=== PATIENT | female | born 1985 | race American Indian/Alaskan Native ===

== ENCOUNTER 2020-07-08 19:49 | Emergency (ER) | payer MEDICAID ==
[2020-07-08] MEDS ORDERED: GI Cocktail Oral Solution 30 ML PO ONE (20:29)
[2020-07-08] MEDS ORDERED: HYDROmorphone 2 MG/ML SDV IVPUSH ONE (20:30)
[2020-07-08] MEDS ORDERED: HYDROmorphone 2 MG/ML SDV ONE (21:10)
--- NOTE | 2020-07-08 21:31 | EDM.PDOC ---
ED HPI GENERAL MEDICAL PROBLEM - General Chief Complaint: Abdominal Pain Stated Complaint: Pain in her galbladder region Time Seen by Provider: 07/08/20 20:00 Source of Information: Reports: Patient History Limitations: Reports: No Limitations - History of Present Illness INITIAL COMMENTS - FREE TEXT/NARRATIVE: 34 year old female presented to ED with abd pain located in upper right quadrant & epigastric areas for the last 3 days -the pain dull ache 5/10 -non radiating .Nothing makes pain better or worse denies fever,N/V ,chest pain ,headache , shortness of breath ,abd pain Duration: Day(s): (3 days ) Quality: Reports: Dull. 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14 Gastrointestinal History: Reports: Other (See Below) Other Gastrointestinal History: gall bladder problems in the past 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: Other (See Below) 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: D & C Social & Family History - Recreational Drug Use Recreational Drug Use: No ED ROS GENERAL - Review of Systems Review Of Systems: See Below Constitutional: Reports: No Symptoms HEENT: Reports: No Symptoms Respiratory: Reports: No Symptoms Cardiovascular: Reports: No Symptoms Endocrine: Reports: No Symptoms GI/Abdominal: Reports: No Symptoms, Abdominal Pain (present in right hypchondrium & epigastric ) : Reports: No Symptoms Musculoskeletal: Reports: No Symptoms Neurological: Reports: No Symptoms ED EXAM, GI/ABD - Physical Exam Exam: See Below Exam Limited By: No Limitations General Appearance: Alert, WD/WN, No Apparent Distress Head: Atraumatic, Normocephalic Cardiovascular: Normal Peripheral Pulses, Regular Rate, Rhythm, No Edema, No Gallop, No JVD, No Murmur, No Rub, Diastolic Murmur GI/Abdominal Exam: Normal Bowel Sounds, Soft, Non-Tender, No Organomegaly, No Distention, No Abnormal Bruit, No Mass Neurological: Alert, Oriented, CN II-XII Intact, Normal Cognition Course - Vital Signs Text/Narrative:: 36 year old female presented with abd pain 3 days vitals monitored labs ordered Blood sugar was 260 there was also sugar in urine Gi cocktail given & injection Dilaudid 1mg given patient is feeling better Disposition = the patient was discharged home in stable positions medications -Myllanta over the counter F/U -with primary care for elevated blood sugar education materials regarding high glucose given i e weight reduction , diet & physical activity Last Recorded V/S: Last Vital Signs Temp 98.6 F 07/08/20 20:06 Pulse 73 07/08/20 20:06 Resp 18 07/08/20 20:06 BP 156/92 H 07/08/20 20:06 Pulse Ox 100 07/08/20 20:06 - Orders/Labs/Meds Orders: Active Orders 24 hr Category Date Time Status AMYLASE [CHEM] Stat Lab 07/08/20 20:54 Ordered BILIRUBIN DIRECT [CHEM] Stat Lab 07/08/20 20:28 Ordered CBC WITH AUTO DIFF [HEME] Stat Lab 07/08/20 20:27 Ordered COMPREHENSIVE METABOLIC PN,CMP [CHEM] Stat Lab 07/08/20 20:27 Ordered LIPASE [CHEM] Stat Lab 07/08/20 20:28 Ordered Preg Urine [HCG QUALITATIVE,URINE] [URCHEM] Stat Lab 07/08/20 20:42 Ordered UA RFX ETHEL AND CULT IF INDIC [URIN] Stat Lab 07/08/20 20:42 Ordered Meds: Medications Discontinued Medications Generic Name Dose Route Start Last Admin Trade Name Freq PRN Reason Stop Dose Admin Al Hydroxide/Mg Hydroxide 30 ml 07/08/20 20:29 07/08/20 20:41 Gi Cocktail PO 07/08/20 20:30 30 ml ONETIME ONE Administration Hydromorphone HCl 2 mg 07/08/20 20:30 07/08/20 21:01 Dilaudid IVPUSH 07/08/20 20:31 1 mg ONETIME ONE Administration Hydromorphone HCl Confirm 07/08/20 21:10 Dilaudid Administered 07/08/20 21:11 Dose 2 mg .ROUTE .STK-MED ONE Departure - Departure Time of Disposition: 21:55 Disposition: Home, Self-Care 01 Condition: Good Clinical Impression: Abdominal pain Qualifiers: Abdominal location: right upper quadrant Qualified Code(s): R10.11 - Right upper quadrant pain - Discharge Information Sepsis Event Note (ED) - Evaluation Sepsis Screening Result: No Definite Risk - Focused Exam Vital Signs: Vital Signs Temp Pulse Resp BP Pulse Ox 07/08/20 20:06 98.6 F 73 18 156/92 H 100 07/08/20 20:00 98.2 F - Problem List & Annotations (1) Abdominal pain SNOMED Code(s): 94817749 Code(s): R10.9 - UNSPECIFIED ABDOMINAL PAIN Status: Acute Priority: Medium Current Visit: Yes Onset Date: ~07/08/20 - My Orders Last 24 Hours: My Active Orders 07/08/20 20:27 CBC WITH AUTO DIFF [HEME] Stat COMPREHENSIVE METABOLIC PN,CMP [CHEM] Stat 07/08/20 20:28 BILIRUBIN DIRECT [CHEM] Stat LIPASE [CHEM] Stat 07/08/20 20:42 Preg Urine [HCG QUALITATIVE,URINE] [URCHEM] Stat UA RFX ETHEL AND CULT IF INDIC [URIN] Stat 07/08/20 20:54 AMYLASE [CHEM] Stat - Assessment/Plan Last 24 Hours: My Active Orders 07/08/20 20:27 CBC WITH AUTO DIFF [HEME] Stat COMPREHENSIVE METABOLIC PN,CMP [CHEM] Stat 07/08/20 20:28 BILIRUBIN DIRECT [CHEM] Stat LIPASE [CHEM] Stat 07/08/20 20:42 Preg Urine [HCG QUALITATIVE,URINE] [URCHEM] Stat UA RFX ETHEL AND CULT IF INDIC [URIN] Stat 07/08/20 20:54 AMYLASE [CHEM] Stat
== END 2020-07-08 21:57 | disposition home or self-care (01) ==
LOC: LB.ED 19:49
DX: R10.11 Right upper quadrant pain (principal); R10.13 Epigastric pain
CPT/HCPCS: 36415; 80053; 81001; 81025; 82150; 82248; 83690; 85025; 87086; 96374; 99284; 99284-25; A9270-GY; J1170

== ENCOUNTER 2020-07-25 23:08 | Emergency (ER) | payer MEDICAID ==
[2020-07-25] MEDS ORDERED: Ciprofloxacin 500 MG Tab ONE (23:40)
[2020-07-25] MEDS ORDERED: traMADol 50 MG Tab ONE (23:40)
[2020-07-25] MEDS ORDERED: Acetaminophen 500 MG Tab ONE (23:49)
[2020-07-25] MEDS ORDERED: Acetaminophen 325 MG Tab ONE (23:55)
--- NOTE | 2020-07-26 00:19 | EDM.PDOC ---
ED HPI GENERAL MEDICAL PROBLEM - General Chief Complaint: Abdominal Pain Stated Complaint: gallbladder pain Time Seen by Provider: 07/25/20 23:50 Source of Information: Reports: Patient History Limitations: Reports: No Limitations - History of Present Illness INITIAL COMMENTS - FREE TEXT/NARRATIVE: patient presented to the ER with a c/o RUQ. started 2 days ago. spasm in nature. worse with movement. not related to food. no urinary symptoms. \no N/V/D. no fever or chills. she reports it lasts for few seconds then go away. frequency almost hourly. similar history 2 weeks ago - was diagnosed with biliary colic - US was ordered but patient missed her appointment. Took tylenol for pain. Pain 4 to 5 out of 10. Duration: Day(s): (2) Location: Reports: Abdomen Quality: Reports: Other (colicky) Severity: Mild Worsens with: Reports: Movement Associated Symptoms: Reports: No Other Symptoms - Related Data Allergies Allergy/AdvReac Type Severity Reaction Status Date / Time No Known Allergies Allergy Verified 07/08/20 20:07 Home Meds: Home Meds NK [No Known Home Meds] 07/08/20 [History] Past Medical History Cardiovascular History: Reports: Other (See Below) Other Cardiovascular History: cardiac surgery for hole in her heart when she was 14 Gastrointestinal History: Reports: Other (See Below) Other Gastrointestinal History: gall bladder problems in the past 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 (See Below) 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 - Infectious Disease History Infectious Disease History: Reports: Chicken Pox, Influenza Social & Family History - Tobacco Use Tobacco Use Status *Q: Never Tobacco User ED ROS GENERAL - Review of Systems Review Of Systems: See Below Constitutional: Reports: No Symptoms HEENT: Reports: No Symptoms Respiratory: Reports: No Symptoms Cardiovascular: Reports: No Symptoms : Reports: No Symptoms Musculoskeletal: Reports: No Symptoms Skin: Reports: No Symptoms Neurological: Reports: No Symptoms Psychiatric: Reports: No Symptoms ED EXAM, GI/ABD - Physical Exam Exam: See Below Exam Limited By: No Limitations General Appearance: Alert, WD/WN, No Apparent Distress Eyes: Bilateral: EOMI Nose: Normal Inspection Respiratory/Chest: No Respiratory Distress, Lungs Clear Cardiovascular: Normal Peripheral Pulses GI/Abdominal Exam: Normal Bowel Sounds, Soft, Tender (RUQ) Back Exam: Normal Inspection Neurological: Alert, Oriented, CN II-XII Intact Course - Vital Signs Last Recorded V/S: Last Vital Signs Temp 36.8 C 07/25/20 23:15 Pulse 85 07/25/20 23:15 Resp 18 07/25/20 23:15 BP 149/94 H 07/25/20 23:15 Pulse Ox 98 07/25/20 23:15 - Orders/Labs/Meds Orders: Active Orders 24 hr Category Date Time Status Ciprofloxacin [Ciprofloxacin HCl] Med 07/26/20 00:42 Once 500 mg PO ONETIME ONE Labs: Laboratory Tests 07/25/20 07/25/20 07/26/20 Range/Units 23:50 23:50 00:04 WBC 8.1 (4.0-11.0) K/uL RBC 5.00 (3.80-5.80) M/uL Hgb 13.4 (11.5-16.5) g/dL Hct 40.5 (37.0-47.0) % MCV 81 (76-96) fL MCH 26.8 L (27.0-32.0) pg MCHC 33.1 (31.0-35.0) g/dL RDW 14.0 (11.0-16.0) % Plt Count 413 (150-500) K/uL MPV 8.6 (6.0-10.0) fL Neut % (Auto) 53.5 (45.0-70.0) % Lymph % (Auto) 37.6 (20.0-40.0) % [place] % (Auto) 6.8 (3.0-10.0) % Eos % (Auto) 1.7 (1.0-5.0) % Baso % (Auto) 0.4 (0.0-0.5) % Neut # (Auto) 4.36 (2.00-7.50) K/uL Lymph # (Auto) 3.06 (1.50-4.00) K/uL [place] # (Auto) 0.55 (0.20-0.80) K/uL Eos # (Auto) 0.14 (0.04-0.40) K/uL Baso # (Auto) 0.03 (0.02-0.10) K/uL Sodium 141 (136-145) mmol/L Potassium 3.6 (3.5-5.1) mmol/L Chloride 105 (98-107) mmol/L Carbon Dioxide 24.0 (21.0-32.0) mmol/L Anion Gap 15.6 H (5.0-15.0) mmol/L BUN 7 L D (8-26) mg/dL Creatinine 0.83 (0.55-1.02) mg/dL Est Cr Clr Drug Dosing TNP Estimated GFR (MDRD) > 60 (>60) MLS/MIN BUN/Creatinine Ratio 8.4 (6-25) Glucose 149 H D (74-100) mg/dL Calcium 8.7 (8.5-10.1) mg/dL Total Bilirubin 0.3 (0.0-1.0) mg/dL ALT 57 (12-78) U/L Alkaline Phosphatase 153 H (46-116) U/L Total Protein 7.2 (6.4-8.2) g/dL Albumin 3.7 (3.4-5.0) g/dL Globulin 3.5 (2.2-4.2) g/dL Albumin/Globulin Ratio 1.1 (0.8-2.0) Urine Color Yellow Urine Appearance Slightly cloudy (CLEAR) Urine pH 5.5 (5.0-8.0) Ur Specific Br[place] 1.025 (1.003-1.030) Urine Protein Negative (NEGATIVE) mg/dL Urine Glucose (UA) Negative (NEGATIVE) mg/dL Urine Ketones Trace H (NEGATIVE) mg/dL Urine Occult Blood Trace (NEGATIVE) Urine Nitrite Negative (NEGATIVE) Urine Bilirubin Negative (NEGATIVE) Urine Urobilinogen 0.2 (0.2-1.0) E.U./dL Ur Leukocyte Esterase Trace H (NEGATIVE) Urine RBC 0-5 H /HPF Urine WBC 5-10 H /HPF Ur Epithelial Cells Moderate /HPF Urine Bacteria Moderate H /HPF Urine Mucus Few /HPF Urine HCG, Qual (NEGATIVE) 07/26/20 Range/Units 00:04 WBC (4.0-11.0) K/uL RBC (3.80-5.80) M/uL Hgb (11.5-16.5) g/dL Hct (37.0-47.0) % MCV (76-96) fL MCH (27.0-32.0) pg MCHC (31.0-35.0) g/dL RDW (11.0-16.0) % Plt Count (150-500) K/uL MPV (6.0-10.0) fL Neut % (Auto) (45.0-70.0) % Lymph % (Auto) (20.0-40.0) % [place] % (Auto) (3.0-10.0) % Eos % (Auto) (1.0-5.0) % Baso % (Auto) (0.0-0.5) % Neut # (Auto) (2.00-7.50) K/uL Lymph # (Auto) (1.50-4.00) K/uL [place] # (Auto) (0.20-0.80) K/uL Eos # (Auto) (0.04-0.40) K/uL Baso # (Auto) (0.02-0.10) K/uL Sodium (136-145) mmol/L Potassium (3.5-5.1) mmol/L Chloride (98-107) mmol/L Carbon Dioxide (21.0-32.0) mmol/L Anion Gap (5.0-15.0) mmol/L BUN (8-26) mg/dL Creatinine (0.55-1.02) mg/dL Est Cr Clr Drug Dosing Estimated GFR (MDRD) (>60) MLS/MIN BUN/Creatinine Ratio (6-25) Glucose (74-100) mg/dL Calcium (8.5-10.1) mg/dL Total Bilirubin (0.0-1.0) mg/dL ALT (12-78) U/L Alkaline Phosphatase (46-116) U/L Total Protein (6.4-8.2) g/dL Albumin (3.4-5.0) g/dL Globulin (2.2-4.2) g/dL Albumin/Globulin Ratio (0.8-2.0) Urine Color Urine Appearance (CLEAR) Urine pH (5.0-8.0) Ur Specific Braman (1.003-1.030) Urine Protein (NEGATIVE) mg/dL Urine Glucose (UA) (NEGATIVE) mg/dL Urine Ketones (NEGATIVE) mg/dL Urine Occult Blood (NEGATIVE) Urine Nitrite (NEGATIVE) Urine Bilirubin (NEGATIVE) Urine Urobilinogen (0.2-1.0) E.U./dL Ur Leukocyte Esterase (NEGATIVE) Urine RBC /HPF Urine WBC /HPF Ur Epithelial Cells /HPF Urine Bacteria /HPF Urine Mucus /HPF Urine HCG, Qual Negative (NEGATIVE) Meds: Medications Discontinued Medications Generic Name Dose Route Start Last Admin Trade Name Chris PRN Reason Stop Dose Admin Acetaminophen Confirm 07/25/20 23:55 07/26/20 00:07 Tylenol Administered 07/25/20 23:56 Not Given Dose 650 mg .ROUTE .STK-MED ONE Acetaminophen Confirm 07/25/20 23:49 07/25/20 23:50 Tylenol Extra Strength Administered 07/25/20 23:50 500 mg Dose Administration 500 mg .ROUTE .STK-MED ONE - Re-Assessments/Exams Free Text/Narrative Re-Assessment/Exam: vitals - no fever or tachycardia mild elevation in BP - which patient reports that is she is aware of it. labs were ordered including CBC, CMP, LIPASE and UA. 07/26/20 00:43 labs - no leukocytosis, mild elevation in alk phosph normal bili no e/o obstructive stone most likely a biliary colic UA was significant for bacteria and WBC. cipro PO was started Departure - Departure Time of Disposition: 00:44 Disposition: Home, Self-Care 01 Condition: Good Clinical Impression: Biliary colic Abdominal pain Qualifiers: Abdominal location: right upper quadrant Qualified Code(s): R10.11 - Right upper quadrant pain UTI (urinary tract infection) Qualifiers: Urinary tract infection type: site unspecified Hematuria presence: without hematuria Qualified Code(s): N39.0 - Urinary tract infection, site not specified - Discharge Information *PRESCRIPTION DRUG MONITORING PROGRAM REVIEWED*: Not Applicable *COPY OF PRESCRIPTION DRUG MONITORING REPORT IN PATIENT MINA: Not Applicable Referrals: PCP,None [Primary Care Provider] - Forms: ED Department Discharge Sepsis Event Note (ED) - Evaluation Sepsis Screening Result: No Definite Risk - Focused Exam Vital Signs: Vital Signs Temp Pulse Resp BP Pulse Ox 07/25/20 23:15 36.8 C 85 18 149/94 H 98 - Problem List & Annotations (1) Biliary colic SNOMED Code(s): 17058612 Code(s): K80.50 - CALCULUS OF BILE DUCT W/O CHOLANGITIS OR CHOLECYST W/O OBST Status: Acute Priority: Medium Current Visit: Yes (2) UTI (urinary tract infection) SNOMED Code(s): 61644797 Code(s): N39.0 - URINARY TRACT INFECTION, SITE NOT SPECIFIED Status: Acute Priority: Medium Current Visit: Yes Qualifiers: Urinary tract infection type: site unspecified Hematuria presence: without hematuria Qualified Code(s): N39.0 - Urinary tract infection, site not specified (3) Abdominal pain SNOMED Code(s): 19812059 Code(s): R10.9 - UNSPECIFIED ABDOMINAL PAIN Status: Acute Priority: Medium Current Visit: No Qualifiers: Abdominal location: right upper quadrant Qualified Code(s): R10.11 - Right upper quadrant pain - Problem List Review Problem List Initiated/Reviewed/Updated: Yes - My Orders Last 24 Hours: My Active Orders 07/26/20 00:42 Ciprofloxacin [Ciprofloxacin HCl] 500 mg PO ONETIME ONE - Assessment/Plan Last 24 Hours: My Active Orders 07/26/20 00:42 Ciprofloxacin [Ciprofloxacin HCl] 500 mg PO ONETIME ONE Plan: - please take your antibiotics as prescribed - return tomorrow morning for US of your gall bladder - call first to make an appointment - take tramadol for pain as prescribed - add tylenol as needed - increase fluids intake - return to the ER if symptoms got worse or any concerns
[2020-07-26] MEDS ORDERED: Ciprofloxacin 500 MG Tab PO ONE (00:42)
== END 2020-07-26 00:56 | disposition home or self-care (01) ==
LOC: LB.ED 23:08
DX: K80.50 Calculus of bile duct without cholangitis or cholecystitis without obstruction (principal); N39.0 Urinary tract infection, site not specified
CPT/HCPCS: 36415; 80053; 81001; 81025; 85025; 99283; 99284; A9270-GY

== ENCOUNTER 2020-07-27 00:04 | Emergency (ER) | payer MEDICAID ==
--- NOTE | 2020-07-27 00:33 | EDM.PDOC ---
ED HPI GENERAL MEDICAL PROBLEM - General Chief Complaint: General Stated Complaint: ABDOMINAL PAIN Time Seen by Provider: 07/27/20 00:30 Source of Information: Reports: Patient History Limitations: Reports: No Limitations - History of Present Illness INITIAL COMMENTS - FREE TEXT/NARRATIVE: presented to the ER with a c/o biliary colic. known gall stones - was seen twice in the ER for the same reason this month. No fever or chills. No emesis but mild nausea. Pain has subsided now. She was seen in the ER yesterday for the same reason - labs - no e/o leukocytosis, but showed a UTI. Was started on Cipro and tramadol. Reports she only took the tramadol once yesterday but not today !! 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 (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 Below) 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 - Infectious Disease History Infectious Disease History: Reports: Chicken Pox, Influenza Social & Family History - Tobacco Use Tobacco Use Status *Q: Former Tobacco User Used Tobacco, but Quit: Yes Month/Year Tobacco Last Used: 06/20 - Caffeine Use Caffeine Use: Reports: None - Recreational Drug Use Recreational Drug Use: No ED ROS GENERAL - Review of Systems Review Of Systems: See Below Constitutional: Reports: No Symptoms HEENT: Reports: No Symptoms Respiratory: Reports: No Symptoms Cardiovascular: Reports: No Symptoms : Reports: No Symptoms Musculoskeletal: Reports: No Symptoms Skin: Reports: No Symptoms ED EXAM, GENERAL - Physical Exam Exam: See Below Exam Limited By: No Limitations General Appearance: Alert, No Apparent Distress Respiratory/Chest: No Respiratory Distress Cardiovascular: Normal Peripheral Pulses GI/Abdominal: Normal Bowel Sounds, Soft, No Distention, Tender (very mild RUQ,no rebound, negative jeff's) Back Exam: Normal Inspection Neurological: Alert, Oriented, No Motor/Sensory Deficits Course - Vital Signs Last Recorded V/S: Last Vital Signs Temp 36.2 C 07/27/20 00:09 Pulse 70 07/27/20 00:09 Resp 14 07/27/20 00:09 BP 146/98 H 07/27/20 00:09 Pulse Ox 97 07/27/20 00:09 - Orders/Labs/Meds Meds: Medications Discontinued Medications Generic Name Dose Route Start Last Admin Trade Name Chris PRN Reason Stop Dose Admin Ketorolac Tromethamine 60 mg 07/27/20 00:34 07/27/20 00:38 Toradol IM 07/27/20 00:35 60 mg ONETIME ONE Administration Ketorolac Tromethamine Confirm 07/27/20 00:47 Toradol Administered 07/27/20 00:48 Dose 60 mg .ROUTE .STK-MED ONE - Re-Assessments/Exams Free Text/Narrative Re-Assessment/Exam: 07/27/20 00:44 vitals - no concerns 07/27/20 00:45 IM toradol was given - reports feeling better. was d/cd home on Zofran and Toradol PO. was instructed to avoid certain type of fatty food - a list was given to her has an appointment to follow up with her primary on - in 3 days. US abdomen was done earlier today - showed multiple gall stone, but no pericholecystic fluids, negative Jeff's sign. Departure - Departure Time of Disposition: 00:47 Disposition: Home, Self-Care 01 Condition: Good Clinical Impression: Biliary colic - Discharge Information *PRESCRIPTION DRUG MONITORING PROGRAM REVIEWED*: Not Applicable *COPY OF PRESCRIPTION DRUG MONITORING REPORT IN PATIENT MINA: Not Applicable Referrals: PCP,None [Primary Care Provider] - Forms: ED Department Discharge Sepsis Event Note (ED) - Evaluation Sepsis Screening Result: No Definite Risk - Focused Exam Vital Signs: Vital Signs Temp Pulse Resp BP Pulse Ox 07/27/20 00:09 36.2 C 70 14 146/98 H 97 - Problem List & Annotations (1) Biliary colic SNOMED Code(s): 95258546 Code(s): K80.50 - CALCULUS OF BILE DUCT W/O CHOLANGITIS OR CHOLECYST W/O OBST Status: Acute Priority: Medium Current Visit: Yes - Problem List Review Problem List Initiated/Reviewed/Updated: Yes - Assessment/Plan Plan: - take new pain medications as prescribed - avoid food that is rich in oil and fat, Also avoid fried food, pizza and fries. - recommend to consume steamed vegetables and white meat. Also fish. - follow up with your PCP per your appointment - return to the ER if fever, emesis or worsening of abdominal pain despite taking pain medications
[2020-07-27] MEDS: Ketorolac 60 MG/2 ML SDV IM ONE (00:38)
[2020-07-27] MEDS: Ketorolac 60 MG/2 ML SDV ONE (00:42)
[2020-07-27] MEDS ORDERED: Ondansetron 4 MG Tab.DIS ONE (00:50)
[2020-07-27] MEDS: Ondansetron 4 MG Tab.DIS PO ONE (00:54)
[2020-07-27] MEDS: Ondansetron 4 MG Tab.DIS ONE (01:00)
== END 2020-07-27 00:58 | disposition home or self-care (01) ==
LOC: LB.ED 00:04
DX: K80.50 Calculus of bile duct without cholangitis or cholecystitis without obstruction (principal); Z87.891 Personal history of nicotine dependence
CPT/HCPCS: 96372; 99283; A9270-GY; J1885

== ENCOUNTER 2020-09-25 08:29 | Emergency (ER) | payer MEDICAID ==
--- NOTE | 2020-09-25 09:37 | EDM.PDOC ---
ED HPI GENERAL MEDICAL PROBLEM - General Chief Complaint: General Stated Complaint: SOB,COVID Time Seen by Provider: 09/25/20 09:20 Source of Information: Reports: Patient, RN History Limitations: Reports: No Limitations - History of Present Illness INITIAL COMMENTS - FREE TEXT/NARRATIVE: patient presented to the ER with a c/o mild SOB that occurred last night. None today. was diagnosed with COVID a week ago. No fever or chills. no h/o asthma. no smoking. but has a h/o anxiety. Reports that yesterday she got herself worked up and felt like she is tight on breath, but was able to sleep and felt better this morning - decided to come to the ER for a checkup. Onset: Gradual Duration: Week(s): (1) - Related Data Allergies Allergy/AdvReac Type Severity Reaction Status Date / Time No Known Allergies Allergy Verified 09/25/20 08:58 Home Meds: Home Meds Acetaminophen [Tylenol] 500 mg PO ASDIRECTED PRN 07/27/20 [History] Ibuprofen [Motrin] 200 mg PO ASDIRECTED PRN 07/27/20 [History] metFORMIN [Glucophage XR] 500 mg PO DAILY 09/25/20 [History] Past Medical History Cardiovascular History: Reports: Other (See Below) Other Cardiovascular History: cardiac surgery for hole in her heart when she was 14 Gastrointestinal History: Reports: Other (See Below) Other Gastrointestinal History: gall bladder problems in the past 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: Other (See Below) Other NETWORK SOLUTIONS ARCHITECT History: D & C Endocrine/Metabolic History: Reports: Diabetes, Type II - Infectious Disease History Infectious Disease History: Reports: Chicken Pox, Influenza Social & Family History - Family History Family Medical History: No Pertinent Family History - Tobacco Use Tobacco Use Status *Q: Former Tobacco User Used Tobacco, but Quit: Yes Month/Year Tobacco Last Used: 06/2019 - Caffeine Use Caffeine Use: Reports: None ED ROS GENERAL - Review of Systems Review Of Systems: See Below Constitutional: Reports: No Symptoms HEENT: Reports: No Symptoms Respiratory: Reports: Shortness of Breath Cardiovascular: Reports: No Symptoms GI/Abdominal: Reports: No Symptoms Musculoskeletal: Reports: No Symptoms Skin: Reports: No Symptoms Neurological: Reports: No Symptoms ED EXAM, GENERAL - Physical Exam Exam: See Below Exam Limited By: No Limitations General Appearance: Alert, WD/WN, No Apparent Distress Eye Exam: Bilateral Eye: EOMI Throat/Mouth: Normal Inspection Head: Atraumatic Respiratory/Chest: No Respiratory Distress, Lungs Clear, Normal Breath Sounds, No Accessory Muscle Use Cardiovascular: Normal Peripheral Pulses, Regular Rate, Rhythm GI/Abdominal: Soft, Non-Tender Neurological: Alert, Oriented, No Motor/Sensory Deficits Psychiatric: Normal Affect Course - Vital Signs Last Recorded V/S: Last Vital Signs Temp 36.8 C 09/25/20 08:50 Pulse 86 09/25/20 09:28 Resp 16 09/25/20 09:28 BP 146/88 H 09/25/20 08:50 Pulse Ox 99 09/25/20 09:28 - Orders/Labs/Meds Orders: Active Orders 24 hr Category Date Time Status RT Aerosol Therapy [RC] ASDIRECTED Care 09/25/20 10:04 Ordered Chest 1V Frontal [CR] Stat Exams 09/25/20 09:11 Taken Albuterol/Ipratropium [DuoNeb 3.0-0.5 MG/3 ML] Med 09/25/20 10:03 Stat 3 ml NEB NOW STA Labs: Laboratory Tests 09/25/20 09/25/20 09/25/20 Range/Units 09:11 09:11 09:11 WBC 6.5 (4.0-11.0) K/uL RBC 5.37 (3.80-5.80) M/uL Hgb 14.0 (11.5-16.5) g/dL Hct 42.2 (37.0-47.0) % MCV 79 (76-96) fL MCH 26.1 L (27.0-32.0) pg MCHC 33.2 (31.0-35.0) g/dL RDW 14.6 (11.0-16.0) % Plt Count 378 (150-500) K/uL MPV 8.5 (6.0-10.0) fL Neut % (Auto) 68.5 (45.0-70.0) % Lymph % (Auto) 26.2 (20.0-40.0) % Craven % (Auto) 5.0 (3.0-10.0) % Eos % (Auto) 0.0 L (1.0-5.0) % Baso % (Auto) 0.3 (0.0-0.5) % Neut # (Auto) 4.43 (2.00-7.50) K/uL Lymph # (Auto) 1.69 (1.50-4.00) K/uL Craven # (Auto) 0.32 (0.20-0.80) K/uL Eos # (Auto) 0.00 L (0.04-0.40) K/uL Baso # (Auto) 0.02 (0.02-0.10) K/uL D-Dimer, Quantitative 127 (0-400) ng/mL Sodium 141 (136-145) mmol/L Potassium 3.7 (3.5-5.1) mmol/L Chloride 104 (98-107) mmol/L Carbon Dioxide 22.6 (21.0-32.0) mmol/L Anion Gap 18.1 H (5.0-15.0) mmol/L BUN 3 L D (8-26) mg/dL Creatinine 0.65 D (0.55-1.02) mg/dL Est Cr Clr Drug Dosing 98.98 mL/min Estimated GFR (MDRD) > 60 (>60) MLS/MIN BUN/Creatinine Ratio 4.6 L (6-25) Glucose 173 H (74-100) mg/dL Calcium 8.7 (8.5-10.1) mg/dL Meds: Medications Discontinued Medications Generic Name Dose Route Start Last Admin Trade Name Freq PRN Reason Stop Dose Admin Albuterol 2.5 mg 09/25/20 09:43 Albuterol 0.083% 2.5 Mg/3 Ml Neb Soln NEB 09/25/20 09:44 ONETIME ONE - Re-Assessments/Exams Free Text/Narrative Re-Assessment/Exam: patient SpO2 is 100% on RA. HR and BP WNL CXR was ordered - no acute abnormalities. Labs CBC, BMP and ddimer - WNL Duoneb was given - felt slightly better symptoms most likely anxiety related Departure - Departure Time of Disposition: 10:08 Disposition: Home, Self-Care 01 Condition: Good Clinical Impression: COVID-19, Anxiety - Discharge Information *PRESCRIPTION DRUG MONITORING PROGRAM REVIEWED*: Not Applicable *COPY OF PRESCRIPTION DRUG MONITORING REPORT IN PATIENT MINA: Not Applicable Instructions: COVID-19 Frequently Asked Questions, 10 Things You Can Do to Manage Your COVID-19 Symptoms at Home - [facility], Supporting Someone With Anxiety Referrals: PCP,None [Primary Care Provider] - Forms: ED Department Discharge Sepsis Event Note (ED) - Evaluation Sepsis Screening Result: No Definite Risk - Focused Exam Vital Signs: Vital Signs Temp Pulse Resp BP Pulse Ox 09/25/20 09:28 86 16 99 09/25/20 09:10 83 99 09/25/20 08:50 36.8 C 89 16 146/88 H 100 - Problem List & Annotations (1) Anxiety SNOMED Code(s): 38456217 Code(s): F41.9 - ANXIETY DISORDER, UNSPECIFIED Status: Acute Priority: Medium Current Visit: Yes (2) COVID-19 SNOMED Code(s): 873016503 Code(s): U07.1 - COVID-19 Status: Acute Priority: Medium Current Visit: Yes - Problem List Review Problem List Initiated/Reviewed/Updated: Yes - My Orders Last 24 Hours: My Active Orders 09/25/20 09:11 Chest 1V Frontal [CR] Stat 09/25/20 10:03 Albuterol/Ipratropium [DuoNeb 3.0-0.5 MG/3 ML] 3 ml NEB NOW STA 09/25/20 10:04 RT Aerosol Therapy [RC] ASDIRECTED - Assessment/Plan Last 24 Hours: My Active Orders 09/25/20 09:11 Chest 1V Frontal [CR] Stat 09/25/20 10:03 Albuterol/Ipratropium [DuoNeb 3.0-0.5 MG/3 ML] 3 ml NEB NOW STA 09/25/20 10:04 RT Aerosol Therapy [RC] ASDIRECTED Plan: - recommend to increase fluids intake - continue isolation for a total of 14 days - avoid second hand smoking - follow up with your PCP in 1-2 weeks as instructed - return to the ER if any worsening of shortness of breath
[2020-09-25] MEDS: Albuterol/Ipratropium 3.0-0.5 MG/3 ML Neb Soln NEB STA (09:58)
--- NOTE | 2020-09-25 10:22 | CR ---
Date of Service: 09/25/20 Clinical Data: SOB PORTABLE CHEST: No priors. The patient has taken a poor inspiration. The patient is status post median sternotomy. The heart size is normal. There is calcification of the aortic arch. The lungs are clear. No pneumothorax. No pleural effusions. No evidence of acute intrathoracic disease. [id number] MTDD
[2020-09-25] MEDS: Albuterol 0.083% 2.5 MG/3 ML Neb Soln NEB ONE (10:49)
== END 2020-09-25 10:10 | disposition home or self-care (01) ==
LOC: LB.ED 08:29
DX: U07.1 COVID-19 (principal); F41.9 Anxiety disorder, unspecified; Z87.891 Personal history of nicotine dependence; E11.9 Type 2 diabetes mellitus without complications; Z79.84 Long term (current) use of oral hypoglycemic drugs
CPT/HCPCS: 36415; 71045; 80048; 85025; 85379; 99285-25; J7620-GY

== ENCOUNTER 2021-01-08 11:00 | Emergency (ER) | payer MEDICAID ==
[2021-01-08] MEDS: Ketorolac 60 MG/2 ML SDV ONE (11:24)
[2021-01-08] MEDS: Ketorolac 60 MG/2 ML SDV IM ONE (11:25)
--- NOTE | 2021-01-08 12:09 | CT ---
DATE OF SERVICE: 01/08/2021 CLINICAL DATA: Right upper quadrant pain Unenhanced abdomen and pelvic CT: Multi slice acquisition through the abdomen and pelvis without IV or oral contrast was performed. No priors. The lung bases are clear. The liver is normal size with homogeneous attenuation. No focal hepatic lesions. The gallbladder appears normal. No calcified gallstones. No pericholecystic fluid. The spleen appears normal. The pancreas appears normal. The right and left adrenals appear normal. The right and left kidneys appear normal. No nephrocalcinosis or nephrolithiasis. No hydronephrosis or hydroureter. There is a small amount of fluid within the bladder. It appears grossly normal. The appendix is not dilated. No evidence of appendicitis. There is mild diverticulosis of the colon. No evidence of diverticulitis. There is a moderate amount of stool present throughout the colon. The uterus is unremarkable No free air. No free fluid. No dilated loops of bowel. No adenopathy. No aortic aneurysm MTDD
--- NOTE | 2021-01-08 12:23 | EDM.PDOC ---
ED HPI GENERAL MEDICAL PROBLEM - General Stated Complaint: RIGHT SIDE LOWER IN PAIN Time Seen by Provider: 01/08/21 11:10 - History of Present Illness INITIAL COMMENTS - FREE TEXT/NARRATIVE: Patient arrives to the ER with complaints of abdominal pain involving the upper right quadrant. She states that it started this morning when she woke up. She has not had any falls or injuries, and does not have any recent symptoms of illness such as fever. She denies any nausea vomiting diarrhea or constipation. She states that she has had this kind of pain before, and had a work-up in July and was found to have some gallstones. She was told she needs to have a surgical consult but this has not been done. The patient has not used any Tylenol or ibuprofen for her pain today. She denies any urinary symptoms such as dysuria or hematuria. Right Abdominal Pain Score (Numeric/FACES): 7 - Related Data Allergies Allergy/AdvReac Type Severity Reaction Status Date / Time No Known Allergies Allergy Verified 01/08/21 11:22 Home Meds: Home Meds Acetaminophen [Tylenol] 500 mg PO ASDIRECTED PRN 07/27/20 [History] Ibuprofen [Motrin] 200 mg PO ASDIRECTED PRN 07/27/20 [History] metFORMIN [Glucophage XR] 500 mg PO DAILY 09/25/20 [History] atorvaSTATin Calcium [Lipitor] 20 mg PO DAILY 01/08/21 [History] Past Medical History Cardiovascular History: Reports: Other (See Below) Other Cardiovascular History: cardiac surgery for hole in her heart when she was 14 Gastrointestinal History: Reports: Other (See Below) Other Gastrointestinal History: gall bladder problems in the past 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 GI/Abdominal: Reports: Abdominal Pain ED EXAM, GI/ABD - Physical Exam Exam: See Below Text/Narrative:: Patient is awake and alert no obvious distress. Vital signs are reviewed as listed they are normal. Lungs are clear, cardiac heart sounds distinct without murmurs, abdomen is soft, there is mild tenderness tenderness with palpation in the upper right quadrant without guarding. Bowel sounds are present. Skin is warm and dry. Course - Vital Signs Last Recorded V/S: Last Vital Signs Temp 96.9 F 01/08/21 11:05 Pulse 68 01/08/21 12:01 Resp 16 01/08/21 12:01 BP 118/79 01/08/21 12:01 Pulse Ox 98 01/08/21 12:01 - Orders/Labs/Meds Labs: Laboratory Tests 01/08/21 01/08/21 01/08/21 Range/Units 11:31 11:31 11:31 WBC 10.5 D (4.0-11.0) K/uL RBC 5.53 (3.80-5.80) M/uL Hgb 14.2 (11.5-16.5) g/dL Hct 43.6 (37.0-47.0) % MCV 79 (76-96) fL MCH 25.7 L (27.0-32.0) pg MCHC 32.6 (31.0-35.0) g/dL RDW 15.3 (11.0-16.0) % Plt Count 465 D (150-500) K/uL MPV 8.6 (6.0-10.0) fL Neut % (Auto) 63.8 (45.0-70.0) % Lymph % (Auto) 28.1 (20.0-40.0) % Anson % (Auto) 6.0 (3.0-10.0) % Eos % (Auto) 1.5 (1.0-5.0) % Baso % (Auto) 0.6 H (0.0-0.5) % Neut # (Auto) 6.69 (2.00-7.50) K/uL Lymph # (Auto) 2.95 (1.50-4.00) K/uL Anson # (Auto) 0.63 (0.20-0.80) K/uL Eos # (Auto) 0.16 (0.04-0.40) K/uL Baso # (Auto) 0.06 (0.02-0.10) K/uL Sodium 138 (136-145) mmol/L Potassium 3.7 (3.5-5.1) mmol/L Chloride 103 (98-107) mmol/L Carbon Dioxide 26.0 (21.0-32.0) mmol/L Anion Gap 12.7 (5.0-15.0) mmol/L BUN 5 L (8-26) mg/dL Creatinine 0.67 (0.55-1.02) mg/dL Est Cr Clr Drug Dosing 91.81 mL/min Estimated GFR (MDRD) > 60 (>60) MLS/MIN BUN/Creatinine Ratio 7.5 (6-25) Glucose 161 H (74-100) mg/dL Calcium 8.6 (8.5-10.1) mg/dL Total Bilirubin 0.5 D (0.0-1.0) mg/dL AST 17 (15-37) U/L ALT 32 (12-78) U/L Alkaline Phosphatase 135 H (46-116) U/L Total Protein 8.1 (6.4-8.2) g/dL Albumin 3.6 (3.4-5.0) g/dL Globulin 4.5 H (2.2-4.2) g/dL Albumin/Globulin Ratio 0.8 (0.8-2.0) Lipase 83 D (73-393) U/L Urine Color Yellow Urine Appearance Clear (CLEAR) Urine pH 7.0 (5.0-8.0) Ur Specific Irving 1.025 (1.003-1.030) Urine Protein Negative (NEGATIVE) mg/dL Urine Glucose (UA) Negative (NEGATIVE) mg/dL Urine Ketones Negative (NEGATIVE) mg/dL Urine Occult Blood Negative (NEGATIVE) Urine Nitrite Negative (NEGATIVE) Urine Bilirubin Negative (NEGATIVE) Urine Urobilinogen 0.2 (0.2-1.0) E.U./dL Ur Leukocyte Esterase Negative (NEGATIVE) Urine RBC Not Reportable Urine WBC Not Reportable Ur Epithelial Cells Rare /HPF Urine Bacteria Rare /HPF Meds: Medications Discontinued Medications Generic Name Dose Route Start Last Admin Trade Name Freq PRN Reason Stop Dose Admin Ketorolac Tromethamine Confirm 01/08/21 11:28 01/08/21 11:24 Ketorolac 60 Mg/2 Ml Sdv Administered 01/08/21 11:29 Not Given Dose 60 mg .ROUTE .STK-MED ONE Ketorolac Tromethamine 60 mg 01/08/21 11:20 01/08/21 11:25 Ketorolac 60 Mg/2 Ml Sdv IM 01/08/21 11:21 60 mg ONETIME ONE Administration - Re-Assessments/Exams Free Text/Narrative Re-Assessment/Exam: 01/08/21 12:21 Patient was given Toradol 60 mg IM at the beginning of our work-up. While monitoring her she states that her pain is significantly improved and she is now comfortable. CT of the abdomen and pelvis is normal there are no abnormal findings. Lab work as well is normal including CBC, CMP, UA, lipase. Departure - Departure Time of Disposition: 12:10 Disposition: Home, Self-Care 01 Condition: Good Clinical Impression: Abdominal pain - Discharge Information *PRESCRIPTION DRUG MONITORING PROGRAM REVIEWED*: Not Applicable *COPY OF PRESCRIPTION DRUG MONITORING REPORT IN PATIENT MINA: Not Applicable Instructions: Abdominal Pain, Adult, [id number] Referrals: PCP,None [Primary Care Provider] - Forms: ED Department Discharge Additional Instructions: Discharge home. CT scan and labs were normal. Follow up in the clinic with your primary provider in 1 week. Tylenol and Ibuprofen alternating for pain. Call or return to the ER if you have any questions or concerns. Sepsis Event Note (ED) - Evaluation Sepsis Screening Result: No Definite Risk - Focused Exam Vital Signs: Vital Signs Temp Pulse Resp BP Pulse Ox 01/08/21 12:01 68 16 118/79 98 01/08/21 11:05 96.9 F 72 16 130/95 H 100
== END 2021-01-08 12:20 | disposition home or self-care (01) ==
LOC: LB.ED 11:00
DX: R10.11 Right upper quadrant pain (principal); E11.9 Type 2 diabetes mellitus without complications; Z79.84 Long term (current) use of oral hypoglycemic drugs; Z79.899 Other long term (current) drug therapy
CPT/HCPCS: 36415; 74176; 80053; 81001; 83690; 85025; 96372; 99284-25; J1885

== ENCOUNTER 2021-05-30 20:52 | Emergency (ER) | payer MEDICAID ==
--- NOTE | 2021-05-30 21:32 | EDM.PDOC ---
ED HPI GENERAL MEDICAL PROBLEM - General Chief Complaint: Respiratory Problem Stated Complaint: congestion Time Seen by Provider: 05/30/21 21:05 Source of Information: Reports: Patient, Family, RN Notes Reviewed History Limitations: Reports: No Limitations - History of Present Illness INITIAL COMMENTS - FREE TEXT/NARRATIVE: Patient presents to the emergency department for evaluation of nasal congestion. She states she has had this for a day or so. She denies cough, fever, change in appetite. She is had no vomiting or diarrhea. She denies headache or chest pain. - Related Data Allergies Allergy/AdvReac Type Severity Reaction Status Date / Time No Known Allergies Allergy Verified 05/31/21 03:36 Home Meds: Home Meds Acetaminophen [Tylenol] 500 mg PO ASDIRECTED PRN 07/27/20 [History] Ibuprofen [Motrin] 200 mg PO ASDIRECTED PRN 07/27/20 [History] metFORMIN [Glucophage XR] 500 mg PO DAILY 09/25/20 [History] atorvaSTATin Calcium [Lipitor] 20 mg PO DAILY 01/08/21 [History] Past Medical History Cardiovascular History: Reports: Other (See Below) Other Cardiovascular History: cardiac surgery for hole in her heart when she was 14 Gastrointestinal History: Reports: Other (See Below) Other Gastrointestinal History: gall bladder problems in the past 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 ED EXAM, GENERAL - Physical Exam Exam: See Below Exam Limited By: No Limitations General Appearance: Alert, No Apparent Distress Eye Exam: Bilateral Eye: EOMI, Normal Inspection, PERRL Ears: Normal External Exam, Normal Canal, Normal TMs Ear Exam: Bilateral Ear: TM normal Nose: Normal Inspection Throat/Mouth: Normal Inspection, Normal Oropharynx (That the nice thing then he can but see he is thinking I had), No Airway Compromise Head: Atraumatic, Normocephalic Neck: Normal Inspection, Full Range of Motion. No: Lymphadenopathy (R), Lymphadenopathy (L) Respiratory/Chest: No Respiratory Distress, Lungs Clear, Normal Breath Sounds, No Accessory Muscle Use Course - Vital Signs Last Recorded V/S: Last Vital Signs Temp 36.8 C 05/30/21 21:02 Pulse 81 05/30/21 21:02 Resp 17 05/30/21 21:02 BP 135/90 05/30/21 21:02 Pulse Ox 100 05/30/21 21:02 - Re-Assessments/Exams Free Text/Narrative Re-Assessment/Exam: This patient presents to the emergency department for evaluation of nasal congestion. History and physical findings are most consistent with an upper respiratory tract infection. There are no signs at this point of other serious bacterial infection such as otitis media, retropharyngeal abscess, epiglottitis, peritonsillar abscess, strep throat, pneumonia, sinusitis, meningitis, or bacteremia. Given her clear lungs, absence of fever, no hypoxia no respiratory distress I do not feel she needs a chest x-ray at this point. There are no concerning gastrointestinal symptoms and no signs of dehydration noted. Suppor tive care measures at home including increased rest and fluids were discussed and follow-up with her primary care provider as needed. The patient was stable at the time of discharge. 05/31/21 11:14 Departure - Departure Time of Disposition: 21:35 Disposition: Home, Self-Care 01 Condition: Good Clinical Impression: Viral illness - Discharge Information Instructions: Viral Respiratory Infection, [id number] Referrals: PCP,Unknown [Ordering Only Provider] - Forms: ED Department Discharge Additional Instructions: follow up as needed
== END 2021-05-30 21:38 | disposition home or self-care (01) ==
LOC: LB.ED 20:52
DX: B34.9 Viral infection, unspecified (principal); E11.9 Type 2 diabetes mellitus without complications; Z79.899 Other long term (current) drug therapy; Z79.84 Long term (current) use of oral hypoglycemic drugs
CPT/HCPCS: 99283

== ENCOUNTER 2021-06-11 21:20 | Emergency (ER) | payer MEDICAID | END 2021-06-11 23:04 | disposition home or self-care (01) | LOC: LB.ED 21:20 | DX: J06.9 Acute upper respiratory infection, unspecified (principal); J02.8 Acute pharyngitis due to other specified organisms; B97.89 Other viral agents as the cause of diseases classified elsewhere; E11.9 Type 2 diabetes mellitus without complications; Z20.822 Contact with and (suspected) exposure to COVID-19; Z79.84 Long term (current) use of oral hypoglycemic drugs; Z79.899 Other long term (current) drug therapy | CPT/HCPCS: 99283; U0002 ==

== ENCOUNTER 2021-07-31 23:18 | Emergency (ER) | payer MEDICAID ==
[2021-07-31] MEDS: Levofloxacin 500 MG Tab PO ONE (23:36)
[2021-07-31] MEDS ORDERED: Ondansetron 4 MG Tab.DIS ONE (23:45)
[2021-07-31] MEDS ORDERED: Acetaminophen/oxyCODONE 325-5 MG Tab ONE (23:45)
== END 2021-07-31 23:53 | disposition home or self-care (01) ==
LOC: LB.ED 23:18
DX: R10.11 Right upper quadrant pain (principal); E11.9 Type 2 diabetes mellitus without complications
CPT/HCPCS: 99283; A9270-GY; Q0162